=== PATIENT | female | born 1985 | race Caucasian/White ===

== ENCOUNTER 2022-11-15 19:51 | Emergency (ER) | payer OTHER ==
[~2022-11-15] VITALS: Ht 160 cm; Wt 53.5 kg
[2022-11-15 19:51] VITALS: BP 181/82
[~2022-11-15 19:51] MED LIST: AMLO10TA88 PO; HYDR25TA32 PO; LISI40TA14 PO
--- NOTE | 2022-11-15 20:05 | NUR ---
PT BIBA BLS ER BED 3
--- NOTE | 2022-11-15 20:21 | NUR ---
BIB MEDIC [facility], UNABLE TO COMPLETE HD . ACUTE ONSET RT LEG PAIN, NO TRAUMA
[2022-11-15] MEDS ORDERED: MORPHINE SULFATE 4 MG/ML SYR IM ONE (21:25)
[2022-11-15] MEDS ORDERED: MORPHINE SULFATE 4 MG/ML SYR ONE (21:31)
[2022-11-15 21:55] LABS: EOSINOPHILS # (AUTO) 0.2 K/uL (0-0.4); EOSINOPHILS % (AUTO) 7.2 % (0.0-4.0); HEMATOCRIT 27.3 % (36-48); HEMOGLOBIN 9.5 g/dL (12.0-16.0); LYMPHOCYTES # (AUTO) 0.8 K/uL (2.5-16.5); LYMPHOCYTES % (AUTO) 25.1 % (20.5-51.1); MEAN CORPUSCULAR HEMOGLOBIN 34 pg (27-31); MEAN CORPUSCULAR HGB CONC 35 g/dL (33-37); MEAN CORPUSCULAR VOLUME 97.1 fL (80-94); MONOCYTES # (AUTO) 0.2 K/uL (0.8-1.0); MONOCYTES % (AUTO) 7.8 % (1.7-9.3); NEUTROPHILS # (AUTO) 1.8 K/uL (1.8-7.7); NEUTROPHILS % (AUTO) 58.9 % (42.2-75.2); PLATELET COUNT (AUTO) 114 K/uL (140-450); RED BLOOD CELL COUNT(AUTO) 2.81 MIL/uL (4.20-5.40); RED CELL DISTRIBUTION WIDTH 12.8 % (11.6-13.7); WHITE BLOOD COUNT (AUTO) 3.1 K/uL (4.8-10.8)
[2022-11-15 22:55] LABS: ALBUMIN 3.5 g/dL (3.4-5.0); ANION GAP 11.7 (8-16); CARBON DIOXIDE 35.9 mmol/L (21-32); MAGNESIUM 2.1 mg/dL (1.8-2.4); POTASSIUM 3.6 mmol/L (3.5-5.1); TOTAL BILIRUBIN 0.5 mg/dL (0.0-1.0)
[2022-11-15 23:01] LABS: CREATININE 5.8 mg/dL (0.6-1.3)
[2022-11-15] MEDS ORDERED: ACET-10509 PO (23:40)
[2022-11-15] MEDS ORDERED: LIDO1ADH47 TP (23:40)
[2022-11-15] MEDS ORDERED: ACET-9527 PO (23:40)
[2022-11-16] MEDS ORDERED: HYDROcodone/APAP 5/325 MG 1 TAB TAB PO ONE (00:05)
[2022-11-16] MEDS ORDERED: HYDROcodone/APAP 5/325 MG 1 TAB TAB ONE (01:16)
--- NOTE | 2022-11-16 01:20 | NUR ---
PAIN MEDS GIVEN PRIOR TO DC HOME
[2022-11-16 01:26] VITALS: BP 195/65
--- NOTE | 2022-11-16 01:26 | NUR ---
Patient discharged with v/s stable. Written and verbal after care instructions given and explained. Patient alert, oriented and verbalized understanding of instructions. Ambulatory with steady gait. All questions addressed prior to discharge. ID band removed. Patient advised to follow up with PMD. Rx of TYLENOL,NORCO,LIDOCAINE PATCH given. Patient educated on indication of medication including possible reaction and side effects. Opportunity to ask questions provided and answered.
== END 2022-11-16 01:26 | disposition home or self-care (01) ==
LOC: MED 19:51
DX: M79.661 Pain in right lower leg (principal); N18.6 End stage renal disease; I25.10 Atherosclerotic heart disease of native coronary artery without angina pectoris; I10 Essential (primary) hypertension; Z99.2 Dependence on renal dialysis; Z79.899 Other long term (current) drug therapy
CPT/HCPCS: 36415; 73552; 80053; 83735; 85025; 93005; 96372; 99285; J2270; Q0092

== ENCOUNTER 2023-05-16 18:52 | Inpatient (IN) | payer OTHER ==
[~2023-05-16] VITALS: Ht 157.5 cm; Wt 54.4 kg
[~2023-05-16 18:52] MED LIST changes: +ACET-10509 PO; +ACET-9527 PO; +LIDO1ADH47 TP
[2023-05-16 18:55] VITALS: BP 159/90; PULSE 83; RESP 18; TEMP 98; O2SAT 99
[2023-05-16 20:19] LABS: BASOPHILS % (AUTO) 0.7 % (0.0-2.0); EOSINOPHILS # (AUTO) 0.3 K/uL (0-0.4); EOSINOPHILS % (AUTO) 7.1 % (0.0-4.0); HEMATOCRIT 31.1 % (36-48); HEMOGLOBIN 10.5 g/dL (12.0-16.0); LYMPHOCYTES # (AUTO) 0.7 K/uL (2.5-16.5); LYMPHOCYTES % (AUTO) 14.7 % (20.5-51.1); MEAN CORPUSCULAR HEMOGLOBIN 31 pg (27-31); MEAN CORPUSCULAR HGB CONC 34 g/dL (33-37); MEAN CORPUSCULAR VOLUME 92.6 fL (80-94); MONOCYTES # (AUTO) 0.3 K/uL (0.8-1.0); MONOCYTES % (AUTO) 6.2 % (1.7-9.3); NEUTROPHILS # (AUTO) 3.2 K/uL (1.8-7.7); NEUTROPHILS % (AUTO) 71.3 % (42.2-75.2); PLATELET COUNT (AUTO) 216 K/uL (140-450); RED BLOOD CELL COUNT(AUTO) 3.36 MIL/uL (4.20-5.40); RED CELL DISTRIBUTION WIDTH 14.1 % (11.6-13.7); WHITE BLOOD COUNT (AUTO) 4.5 K/uL (4.8-10.8)
[2023-05-16 20:31] LABS: INR 0.99 (0.8-1.2); PARTIAL THROMBOPLASTIN TIME 27.8 secs (22-35.6); PROTHROMBIN TIME 10.4 secs (10.8-13.4)
[2023-05-16 20:34] LABS: ALBUMIN 3.4 g/dL (3.4-5.0); ANION GAP 15.2 (8-16); CALCIUM 8.6 mg/dL (8.5-10.1); POTASSIUM 4.2 mmol/L (3.5-5.1); TOTAL BILIRUBIN 0.7 mg/dL (0.0-1.0)
[2023-05-16 20:37] LABS: CREATININE 6.1 mg/dL (0.6-1.3)
[2023-05-16] MEDS ORDERED: MORPHINE SULFATE 4 MG/ML SYR IVP ONE (21:50)
[2023-05-16] MEDS ORDERED: ACETAMINOPHEN 325 MG TAB PO PRN (22:40)
[2023-05-16] MEDS ORDERED: HYDROcodone/APAP 5/325 MG 1 TAB TAB PO PRN (22:40)
[2023-05-16] MEDS ORDERED: LORazepam 1 MG TAB PO PRN (22:40)
[2023-05-16] MEDS ORDERED: ONDANSETRON 4 MG/2 ML VIAL IVP PRN (22:40)
[2023-05-16] MEDS ORDERED: ZOLPIDEM 5 MG TAB PO PRN (22:40)
[2023-05-16] MEDS ORDERED: MORPHINE SULFATE 4 MG/ML SYR IVP PRN (22:40)
[2023-05-16] MEDS ORDERED: LOSA-272 PO (23:13)
[2023-05-17] MEDS: hydrALAZINE 20 MG/ML VIAL IVP PRN ×3 (01:15→23:52)
[2023-05-17] MEDS: ASPIRIN 81 MG TAB.CHEW PO SCH (08:36)
[2023-05-17] MEDS: ATORVASTATIN 20 MG TAB PO SCH (08:36)
[2023-05-17] MEDS: DOCUSATE SODIUM 100 MG GELCAP PO SCH (08:36)
[2023-05-17 08:51] LABS: EOSINOPHILS # (AUTO) 0.3 K/uL (0-0.4); EOSINOPHILS % (AUTO) 6.8 % (0.0-4.0); HEMOGLOBIN 9.7 g/dL (12.0-16.0); LYMPHOCYTES # (AUTO) 0.6 K/uL (2.5-16.5); LYMPHOCYTES % (AUTO) 15.3 % (20.5-51.1); MEAN CORPUSCULAR HEMOGLOBIN 31 pg (27-31); MEAN CORPUSCULAR HGB CONC 33 g/dL (33-37); MEAN CORPUSCULAR VOLUME 93.5 fL (80-94); MONOCYTES # (AUTO) 0.4 K/uL (0.8-1.0); MONOCYTES % (AUTO) 9.2 % (1.7-9.3); NEUTROPHILS # (AUTO) 2.8 K/uL (1.8-7.7); NEUTROPHILS % (AUTO) 67.7 % (42.2-75.2); PLATELET COUNT (AUTO) 182 K/uL (140-450); RED BLOOD CELL COUNT(AUTO) 3.11 MIL/uL (4.20-5.40); RED CELL DISTRIBUTION WIDTH 14.2 % (11.6-13.7); WHITE BLOOD COUNT (AUTO) 4.1 K/uL (4.8-10.8)
[2023-05-17 08:58] LABS: ANION GAP 13.5 (8-16); CALCIUM 8.5 mg/dL (8.5-10.1); CARBON DIOXIDE 33.3 mmol/L (21-32); POTASSIUM 4.8 mmol/L (3.5-5.1)
[2023-05-17 09:01] LABS: CREATININE 7.6 mg/dL (0.6-1.3)
[2023-05-17 17:43] VITALS: PULSE 86; RESP 12; O2SAT 100
[2023-05-17 17:59] VITALS: BP 174/100; PULSE 91; RESP 18; TEMP 97; O2SAT 100
[2023-05-17 20:00] VITALS: BP 175/97; PULSE 86; PULSE 87; RESP 17; TEMP 98; O2SAT 100
[2023-05-18] VITALS (7 sets, daily range): BP systolic 163–191; BP diastolic 74–106; PULSE 68–84; RESP 16–73; TEMP 97.4–98.1; O2SAT 97–100
[2023-05-18] MEDS ORDERED: METOPROLOL 5 MG/5 ML VIAL IVP PRN ×2 (01:55→08:08)
[2023-05-18 06:42] LABS: BASOPHILS # (AUTO) 0.1 K/uL (0.00-0.22); BASOPHILS % (AUTO) 1.1 % (0.0-2.0); EOSINOPHILS # (AUTO) 0.5 K/uL (0-0.4); EOSINOPHILS % (AUTO) 10.4 % (0.0-4.0); HEMATOCRIT 30.4 % (36-48); HEMOGLOBIN 10.1 g/dL (12.0-16.0); LYMPHOCYTES # (AUTO) 0.7 K/uL (2.5-16.5); LYMPHOCYTES % (AUTO) 14.4 % (20.5-51.1); MEAN CORPUSCULAR HEMOGLOBIN 31 pg (27-31); MEAN CORPUSCULAR HGB CONC 33 g/dL (33-37); MEAN CORPUSCULAR VOLUME 93.9 fL (80-94); MONOCYTES # (AUTO) 0.4 K/uL (0.8-1.0); MONOCYTES % (AUTO) 7.5 % (1.7-9.3); NEUTROPHILS # (AUTO) 3.3 K/uL (1.8-7.7); NEUTROPHILS % (AUTO) 66.6 % (42.2-75.2); PLATELET COUNT (AUTO) 182 K/uL (140-450); RED BLOOD CELL COUNT(AUTO) 3.23 MIL/uL (4.20-5.40)
[2023-05-18 07:02] LABS: CALCIUM 9.1 mg/dL (8.5-10.1); CARBON DIOXIDE 31.1 mmol/L (21-32); POTASSIUM 5.1 mmol/L (3.5-5.1)
[2023-05-18 07:09] LABS: CREATININE 6.2 mg/dL (0.6-1.3)
[2023-05-18] MEDS: ATORVASTATIN 20 MG TAB PO SCH (08:16)
[2023-05-18] MEDS: DOCUSATE SODIUM 100 MG GELCAP PO SCH (08:16)
[2023-05-18] MEDS: ASPIRIN 81 MG TAB.CHEW PO SCH (08:16)
[2023-05-18] MEDS ORDERED: LOSARTAN 50 MG TAB PO SCH (10:00)
[2023-05-18] MEDS ORDERED: amLODIPine 5 MG TAB PO SCH (10:00)
[2023-05-18] MEDS ORDERED: ASPI81CT95 PO (11:49)
[2023-05-18] MEDS ORDERED: ATOR20TA40 PO (11:49)
[2023-05-18] MEDS ORDERED: SEVELAMER CARBONATE 800 MG TAB PO SCH (12:00)
[2023-05-18] MEDS: hydrALAZINE 20 MG/ML VIAL IVP PRN (13:06)
== END 2023-05-18 16:45 | disposition home or self-care (01) | DRG 199 ==
LOC: MED 18:52 → MTU 22:35
PROVIDERS: ADMIT Internal Medicine; ATTEND Internal Medicine
PROC: 5A1D70Z Performance of Urinary Filtration, Intermittent, Less than 6 Hours Per Day (ICD-10-PCS; principal; 2023-05-17)
DX: I16.9 Hypertensive crisis, unspecified (principal); J96.00 Acute respiratory failure, unspecified whether with hypoxia or hypercapnia; I50.33 Acute on chronic diastolic (congestive) heart failure; E87.70 Fluid overload, unspecified; I13.2 Hypertensive heart and chronic kidney disease with heart failure and with stage 5 chronic kidney disease, or end stage renal disease; N18.6 End stage renal disease; D64.9 Anemia, unspecified; I25.10 Atherosclerotic heart disease of native coronary artery without angina pectoris; Z79.899 Other long term (current) drug therapy; Z99.2 Dependence on renal dialysis; Z95.1 Presence of aortocoronary bypass graft; M94.0 Chondrocostal junction syndrome [Tietze]
CPT/HCPCS: 36415; 71045; 80048; 80053; 83735; 83880; 84100; 84484; 85025; 85610; 85730; 87081; 93005; 96374; 96375; 99285; J0360; J1644; J2270; J2405; J3490; Q0092